=== PATIENT | male | born 1930 | race Caucasian/White ===

== ENCOUNTER 2017-09-23 13:26 | Emergency (ER) | payer MEDICARE, BC | END 2017-09-23 14:58 | disposition home or self-care (01) | LOC: ERS 13:26 | DX: S37.30XA Unspecified injury of urethra, initial encounter (principal); E11.9 Type 2 diabetes mellitus without complications; I10 Essential (primary) hypertension; Z79.84 Long term (current) use of oral hypoglycemic drugs; Z79.899 Other long term (current) drug therapy; X58.XXXA Exposure to other specified factors, initial encounter | CPT/HCPCS: 99283 ==

== ENCOUNTER 2017-09-24 08:27 | Inpatient (IN) | payer MEDICARE, BC ==
[2017-09-24 09:22] LABS: #Eosinphils 0.1 thou/uL (0.0-0.7); #Lymphocytes 1.2 thou/uL (1.20-3.40); #Monocytes 0.8 thou/uL (0.11-0.59); #Neutrophils 6.6 thou/uL (1.40-6.50); %Basophils 0.1 % (0.0-1.0); %Eosinophils 1.4 % (0.0-10.0); %Lymphocytes 14.1 % (21.0-51.0); %Monocytes 8.6 % (0.0-10.0); %Neutrophils 75.8 % (42.0-75.0); Hemoglobin 12.8 g/dL (14.0-18.0); Mean Corpuscular HGB CONC 34.6 g/dL (32.0-36.0); Mean Corpuscular Hemoglobin 31.4 pg (27.0-31.0); Mean Corpuscular Volume 90.7 fl (80.0-94.0); Mean Platelet Volume 5.7 fL (7.4-10.4); Platelet Count 315 thou/uL (130-400); RBC Distribution Width 11.9 % (11.5-14.5); Red Blood Cell (RBC) Count 4.07 mill/uL (4.70-6.10); White Blood Cell (WBC) Count 8.7 thou/uL (4.8-10.8)
[2017-09-24 09:27] LABS: Bilirubin Negative (Negative); Blood, Urine Large (Negative); Glucose, Urine (Dipstick) >=1000 mg/dL (Negative); Leukocyte Small (Negative); Nitrite Negative (Negative); Protein, Urine (Dipstick) 30 mg/dL (Neg-Trace); Urobilinogen 0.2 mg/dL (0.2-1.0)
[2017-09-24 09:28] LABS: Clarity Cloudy (Clear)
[2017-09-24 09:31] LABS: Bacteria/HPF None Seen HPF (None Seen); Hyaline Casts/LPF 0-3 HYALINE CAST LPF (0-3 Hyaline); RBC/HPF GREATER THAN 50-TNTC HPF (0-3); Squamous Epithelial 0-3 HPF (0-3)
[2017-09-24 09:44] LABS: ALT (SGPT) 15 U/L (8-55); AST (SGOT) 16 U/L (5-34); Alkaline Phosphatase 81 U/L (40-150); Anion Gap 15 mmol/L (10-20); BUN (Urea Nitrogen) 32 mg/dL (8.4-25.7); Bilirubin, Total 0.5 mg/dL (0.2-1.2); Calc. Creatinine Clearance 0 mL/min (70-130); Calcium 9.2 mg/dL (7.8-10.44); Carbon Dioxide 22 mmol/L (23-31); Chloride 90 mmol/L (98-107); Estimated GFR-MDRD 54; Globulin 3.9 g/dL (2.4-3.5); Glucose 322 mg/dL (83-110); Potassium 4.6 mmol/L (3.5-5.1); Protein, Total 7.9 g/dL (5.8-8.1); Sodium 122 mmol/L (136-145)
[2017-09-24] MEDS ORDERED: Acetaminophen 500 MG TAB ONE ×2 (09:52→09:55)
[2017-09-24] MEDS ORDERED: Fentanyl 100 MCG/2 ML VIAL ONE (10:25)
[2017-09-24] MEDS ORDERED: cefTRIAXone\\ROCEPHIN 2 GM VIAL ONE (10:25)
[2017-09-24] MEDS ORDERED: Ondansetron ODT 4 MG TAB ONE (11:15)
[2017-09-24] MEDS ORDERED: Vancomycin HCl 1 GM in Premix Bag 1 BAG IVPB SCH (11:45)
[2017-09-24 11:58] LABS: CKMB 0.5 ng/mL (0-6.6); Troponin I Less than 0.010 ng/mL (< 0.028)
--- NOTE | 2017-09-24 12:09 | RAD ---
PORTABLE CHEST: Date: 09/24/17 PROVIDED CLINICAL HISTORY: Sepsis. FINDINGS: Comparison made with the study dated 07/23/15. The cardiac silhouette appears enlarged. There is volume loss involving the right hemithorax with octavio ft of the medial contents rightward. This appears accentuated with respect to the prior study. The le ft lung appears clear. There is no evidence for pneumothorax. Pleural and/or parenchymal opacity at t he right lung base cannot be excluded. IMPRESSION: Shift of the mediastinal contents rightward and right basilar pleural and/or parenchymal opacity, whi ch may reflect lobar atelectasis. Consider correlation with chest CT. POS: [facility]
[2017-09-24] MEDS ORDERED: Acetaminophen 325 MG TAB PO PRN ×2 (12:39→12:56)
[2017-09-24] MEDS ORDERED: Ondansetron HCl/PF 4 MG/2 ML Vial IVP PRN ×2 (12:39→12:56)
[2017-09-24] MEDS ORDERED: Sodium Chloride 0.9% 1,000 ML IV SCH (12:39)
[2017-09-24] MEDS ORDERED: Ondansetron ODT 4 MG TAB SL PRN (12:39)
[2017-09-24] MEDS ORDERED: Calcium Carbonate 500 MG ChewTAB PO PRN (12:56)
[2017-09-24] MEDS ORDERED: traMADol HCl 50 MG TAB PO PRN (12:56)
[2017-09-24] MEDS ORDERED: Benzonatate 100 MG CAP PO PRN (12:56)
[2017-09-24] MEDS ORDERED: Bisacodyl 5 MG TAB PO PRN ×2 (12:56)
[2017-09-24] MEDS ORDERED: Loratadine 10 MG TAB PO PRN (12:56)
[2017-09-24] MEDS ORDERED: Milk Of Magnesia 30 ML UDCUP PO PRN (12:56)
[2017-09-24] MEDS ORDERED: Diabetic Tussin 200 MG/10 ML UDCUP PO PRN (12:56)
[2017-09-24] MEDS ORDERED: cloNIDine 0.1 MG TAB PO PRN (12:56)
[2017-09-24] MEDS ORDERED: Senokot 8.6 MG TAB PO PRN ×2 (12:56)
[2017-09-24] MEDS ORDERED: hydrALAZINE 20 MG/ML VIAL SLOW IVP PRN (12:56)
[2017-09-24] MEDS ORDERED: Nitroglycerin 0.4 MG TAB (25 Tab Bottle) SL PRN (12:56)
[2017-09-24] MEDS ORDERED: Mag-Al 1200 mg/1200 mg/30 ML UDCUP PO PRN (12:56)
[2017-09-24] MEDS ORDERED: HumaLOG 300 UNITS/3 ML VIAL SC PRN (13:01)
[2017-09-24] MEDS ORDERED: Dextrose 5% in Water 1,000 ML IV PRN (13:01)
[2017-09-24] MEDS ORDERED: Dextrose 50% Abboject 50 ML SYRINGE SLOW IVP PRN (13:01)
[2017-09-24 14:17] VITALS: BMI 23.0
[2017-09-24 14:42] LABS: Lactic Acid 3.8 mmol/L (0.5-2.2)
--- NOTE | 2017-09-24 14:49 | HP ---
DATE OF ADMISSION: 09/24/2017 PRIMARY CARE PHYSICIAN: Dr. Kwabena Rodriguez. CHIEF COMPLAINT: Blood in the urine. HISTORY OF PRESENT ILLNESS: Mr. Mendoza is a pleasant 86-year-old male with known history of indwelli ng Prado catheter due to urinary retention, diabetes, and hypertension, who presented to the emergenc y room with the above-mentioned complaint. History is mainly obtained by the patient himself and sup plemented by his daughter present in the room. Case has been discussed with admitting ER physician, Dr. Mart. Electronic medical records have been reviewed. The patient was seen in the emergency ro om yesterday also with complaints of blood in his urine. At that time, his catheter was flushed and he was sent home. Mr. Mendoza came back again today when he found more urine and his leg back today. He reports that he has this Prado catheter for about one year and follows up with the urologist at the [facility]. His Prado catheter was changed by his home health nurse only yesterday. This morning, h e noticed that the bleeding was getting worse and there was a lot of blood in the catheter today as w ell as in the back, so he came to the emergency room. In the ER, he was found to have blood in the l eg bag and this was flushed by the emergency room nurse with return of clear urine. His urine has si nce been cleared and has remained clear without any more blood. He was found to have evidence of a m ild urinary tract infection on further workup with WBCs and leukocyte esterase in the emergency room. His H&H has been stable and he does not have any leukocytosis, but he has elevated neutrophil count . He was also found to have low sodium at 122. He does report that he has been feeling poorly for t he last week or so, but denies any fever, chills, cough, or rhinorrhea. He denies any nausea, vomiti ng, diarrhea, or abdominal pain. He denies any dysuria either. In the emergency room, the patient was stable, but later after receiving Rocephin for UTI, he became hypotensive with a systolic blood pressure dropping to 79/50. This was easily corrected with fluid b olus. He did have one episode of vomiting after this, but since then his blood pressure has been cor rected and he is feeling much better and he is actually eating when I saw him and is in good spirits. He is now being admitted to the hospital with sepsis, septic shock secondary to urinary tract infec tion, hyponatremia and hematuria. The patient also did fall 2 days ago when he turned wrong. PAST MEDICAL HISTORY: Hypertension and diabetes mellitus, (02:58) chronic urinary retention sta tus post indwelling Prado catheter. PAST SURGICAL HISTORY: Prado catheter placement 1 year ago. PSYCHIATRIC HISTORY: No anxiety, no depression. SOCIAL HISTORY: He lives by himself at home with the help of family support. No history of drug, to bacco or alcohol abuse. FAMILY HISTORY: No significant family history of any premature coronary artery disease or stroke or cancer. ALLERGIES: No known medication allergies. MEDICATIONS: They further need to be confirmed, but so far according to the ER reports he is on the following, triamterene/hydrochlorothiazide 37.5/25 mg daily, glyburide 2.5 mg b.i.d., verapamil 240 m g b.i.d., metformin 1000 mg daily, enalapril 20 mg daily, metoprolol tartrate 25 mg b.i.d. REVIEW OF SYSTEMS: A 12-point review of system is done, it is negative except for those mentioned in the history and physical. Constitutional: Weight loss or gain, ability to conduct usual activities. Skin: Rash, itching. Eyes: Double vision, pain. ENT/Mouth: Nose bleeding, neck stiffness, pain, tenderness. Cardiovascular: Palpitations, dyspnea on exertion, orthopnea. Respiratory: Shortness of breath, wheezing, cough, hemoptysis, fever or night sweats. Gastrointestinal: Poor appetite, abdominal pain, heartburn, nausea, vomiting, constipation, or diarrhea. Genitourinary: Urgency, frequency, dysuria, nocturia. Musculoskeletal: Pain, swelling. Neurologic/Psychiatric: Anxiety, depression. Allergy/Immunologic: Skin rash, bleeding tendency. LABORATORY DATA: His CBC shows WBCs at 8.7, hemoglobin 12.8, platelet count of 315, 75% neutrophils. Serum chemistry shows sodium of 122, chloride 90, bicarbonate 22, BUN 32, creatinine 1.26, blood mena gar 322, lactic acid 3.7. Cardiac enzymes within normal limits. Creatinine kinase is normal. Urina lysis showed glucosuria, proteinuria, leukocyte esterase, wbc and multiple rbc's. Chest x-ray by my review has no evidence to suggest pulmonary effusion or edema. He does have right-sided atelectasis. A 12-lead EKG by my review shows normal sinus rhythm at 73 beats per minute with normal ST segment and T waves. PHYSICAL EXAMINATION: VITAL SIGNS: Upon presentation, blood pressure 158/95, pulse of 92, respirations 19, saturating 96% on room air, temperature 97.9. GENERAL: No acute distress, awake, alert, oriented x3, eating in bed, appears nontoxic. HEENT: Mucous membranes are slightly dry. No oropharyngeal exudate or erythema. Head is normocepha lic, atraumatic. Pupils equal, reactive to light and accommodation. Extraocular movement intact. NECK: Supple without any lymphadenopathy, JVD or bruit. CHEST: Clear to auscultation without any wheezing, rales or rhonchi. CARDIOVASCULAR: Rate and rhythm is regular without any murmur, rubs or gallops. ABDOMEN: Somewhat distended without no tenderness, no hepatosplenomegaly, it is soft. No guarding, rebound or rigidity. EXTREMITIES: Free of any cyanosis, clubbing, or edema. GENITOURINARY: Clean looking Prado catheter is placed with clean urine in the bag. NEUROLOGIC: Nonfocal. SKIN: Free of any rashes or bruises. I feel warm and dry to touch. PSYCHIATRIC: Normal affect. IMPRESSION AND PLAN: 1. Sepsis and septic shock. This is secondary to urinary tract infection most likely. Urine cultur e and blood cultures have been obtained. We will continue with broad spectrum IV antibiotics for now including vancomycin and Rocephin. He has also received gentamicin in the emergency room. We will continue fluid resuscitation to maintain adequate mean arterial pressure. He will be admitted to [facility] because of hypotension on presentation. Currently, he is clinically improved. He will be monitore d closely on telemetry. 2. Urinary tract infection, likely secondary to chronic indwelling Prado catheter. We will await fo r the final results of the urine culture and adjust antibiotics as needed. 3. Hyponatremia. This is likely secondary to poor p.o. intake in the last few days and dehydration due to sepsis. He will be resuscitated with IV fluids and we will recheck sodium in the morning as a gain. 4. Hematuria. This was secondary to traumatic Prado insertion yesterday. The patient has clear uri ne for now. We will continue to monitor and monitor H&H. Avoid any heparin products for now. 5. Chronic indwelling Prado catheter as above. Catheter care will be provided while he is here. He will follow up with his urologist as an outpatient after discharge. 6. Diabetes mellitus type 2. We will provide him with insulin sliding scale and resume his home med ications once confirmed. 7. Hypertension. We will hold all antihypertensives for now given the presence of low blood pressur e. Add p.r.n. antihypertensives and monitor closely for now. 8. Code status: FULL CODE. Discussed with the patient. 9. Deep venous thrombosis and gastrointestinal prophylaxes with sequential compression devices and P epcid p.o. daily. 10. Add p.r.n. medication order and supportive care. DISPOSITION: Mr. Mendoza is currently being admitted to the hospital with sepsis and septic shock sec ondary to urinary tract infection. Estimated length of stay at this time is at least 2-3 midnights. Further management will depend upon his clinical course.
[2017-09-24] MEDS: Sodium Chloride 0.9% 1,000 ML IV SCH ×2 (15:12→23:36)
[2017-09-24] MEDS ORDERED: Prevnar 13-Val Conj/PF 0.5 ML SYRINGE IM ONE (15:15)
[2017-09-24] MEDS ORDERED: Pepto Bismol Chew TAB PO PRN (15:56)
[2017-09-24] MEDS ORDERED: EUCALYPTUS PO PRN (16:15)
[2017-09-24] MEDS ORDERED: MENTHOL PO PRN (16:15)
[2017-09-24] MEDS: glyBURIDE 2.5 MG TAB PO SCH (18:42)
[2017-09-24] MEDS: Famotidine 20 MG TAB PO SCH (20:55)
[2017-09-25 04:49] LABS: #Eosinphils 0.1 thou/uL (0.0-0.7); #Lymphocytes 1.6 thou/uL (1.20-3.40); #Monocytes 1.1 thou/uL (0.11-0.59); #Neutrophils 10.5 thou/uL (1.40-6.50); %Basophils 0.2 % (0.0-1.0); %Eosinophils 0.6 % (0.0-10.0); %Lymphocytes 12.1 % (21.0-51.0); %Monocytes 8.5 % (0.0-10.0); %Neutrophils 78.5 % (42.0-75.0); Hemoglobin 11.2 g/dL (14.0-18.0); Mean Corpuscular HGB CONC 33.6 g/dL (32.0-36.0); Mean Corpuscular Hemoglobin 30.7 pg (27.0-31.0); Mean Corpuscular Volume 91.4 fl (80.0-94.0); Platelet Count 252 thou/uL (130-400); RBC Distribution Width 11.9 % (11.5-14.5); Red Blood Cell (RBC) Count 3.64 mill/uL (4.70-6.10); White Blood Cell (WBC) Count 13.3 thou/uL (4.8-10.8)
[2017-09-25 05:01] LABS: Anion Gap 13 mmol/L (10-20); BUN (Urea Nitrogen) 28 mg/dL (8.4-25.7); Calc. Creatinine Clearance 44 mL/min (70-130); Calcium 8.2 mg/dL (7.8-10.44); Carbon Dioxide 21 mmol/L (23-31); Chloride 99 mmol/L (98-107); Estimated GFR-MDRD 61; Glucose 94 mg/dL (83-110); Potassium 4.5 mmol/L (3.5-5.1); Sodium 128 mmol/L (136-145)
[2017-09-25] MEDS: Famotidine 20 MG TAB PO SCH (08:26)
[2017-09-25] MEDS: glyBURIDE 2.5 MG TAB PO SCH ×2 (08:26→21:18)
[2017-09-25] MEDS: Metoprolol Tartrate 25 MG TAB PO SCH ×2 (09:07→21:18)
[2017-09-25] MEDS: Sodium Chloride 0.9% 1,000 ML IV SCH ×3 (09:09→14:06)
[2017-09-25] MEDS: cefTRIAXone\\ROCEPHIN 2 GM in Sodium Chloride 0.9% 100 ML IVPB SCH (10:44)
[2017-09-25] MEDS: Vancomycin HCl 1 GM in Premix Bag 1 BAG IVPB SCH (12:04)
[2017-09-25] MEDS: HumaLOG 300 UNITS/3 ML VIAL SC PRN (12:04)
--- NOTE | 2017-09-25 13:50 | PDOC.PN ---
- Subjective Encounter Start Date: 09/25/17 Encounter Start Time: 13:48 Subjective: feels much better.no new complaints -: no CP/SOb.no hematuria - Objective Resuscitation Status: Resuscitation Status FULL:Full Resuscitation MAR Reviewed: Yes Vital Signs & Weight: Vital Signs (12 hours) Temp Pulse Resp BP Pulse Ox 09/25/17 11:36 98.0 F 78 16 161/82 H 95 09/25/17 09:17 97 09/25/17 08:00 98.7 F 75 20 95 09/25/17 07:39 98.7 F 75 20 132/59 L 95 09/25/17 03:53 99.4 F 70 20 125/57 L 95 Weight Weight 152 lb 1.6 oz I&O: 09/24/17 09/25/17 09/26/17 06:59 06:59 06:59 Intake Total 1200 480 Output Total 2300 Balance -1100 480 Result Diagrams: 09/25/17 03:38 09/25/17 03:38 Additional Labs: Accuchecks 09/25/17 09/25/17 09/24/17 10:55 05:44 22:25 POC Glucose 215 H 101 124 H Microbiology 09/24/17 10:40 Venous blood - Left Arm Blood Culture - Preliminary Gram Negative Yunior 09/24/17 10:34 Venous blood - Right Hand Blood Culture - Preliminary Specimen has been received and culture in progress. No Growth to date. 09/24/17 08:53 Urine barber catheter Urine Culture - Preliminary Gram Negative Yunior Laboratory Tests 09/24/17 09/25/17 09:00 03:38 Sodium 122 L 128 L labs reviewed Phys Exam - Physical Examination Constitutional: NAD HEENT: PERRLA, moist MMs, sclera anicteric, oral pharynx no lesions Neck: no nodes, no JVD, supple, full ROM Respiratory: no wheezing, no rales, no rhonchi, clear to auscultation bilateral Cardiovascular: RRR, no significant murmur, no rub Gastrointestinal: soft, non-tender, no distention, positive bowel sounds Musculoskeletal: no edema, pulses present Neurological: non-focal, normal sensation, moves all 4 limbs Psychiatric: normal affect, A&O x 3 Skin: no rash Dx/Plan (1) Sepsis Code(s): A41.9 - SEPSIS, UNSPECIFIED ORGANISM Status: Acute (2) UTI (urinary tract infection) Status: Acute (3) Gram-neg septicemia Status: Acute (4) Hyponatremia Code(s): E87.1 - HYPO-OSMOLALITY AND HYPONATREMIA Status: Acute Comment: likley due to dehydration,sepsis and diuretics.Diuretics stopped (5) Hematuria Code(s): R31.9 - HEMATURIA, UNSPECIFIED Status: Acute (6) Septic shock Code(s): A41.9 - SEPSIS, UNSPECIFIED ORGANISM; R65.21 - SEVERE SEPSIS WITH SEPTIC SHOCK Status: Resolved (7) HTN (hypertension) Code(s): I10 - ESSENTIAL (PRIMARY) HYPERTENSION Status: Acute (8) Chronic indwelling Barber catheter Code(s): Z92.89 - PERSONAL HISTORY OF OTHER MEDICAL TREATMENT Status: Acute - Plan PT/OT, out of bed/ambulate, DVT proph w/SCDs sodium improving.adequate PO intake.anastasia slow dwon the IVf -: restart Bp meds slowly as tolerated and titrate up. -: cont empiric Abx untill final Cx available. -: hemodynamically stable.monitor -: am labs * . Review of Systems - Review of Systems Constitutional: negative: fever, chills, sweats, weakness, malaise, other Respiratory: negative: Cough, Dry, Shortness of Breath, Hemoptysis, SOB with Excertion, Pleuritic Pain, Sputum, Wheezing Cardiovascular: negative: chest pain, palpitations, orthopnea, paroxysmal nocturnal dyspnea, edema, light headedness, other Gastrointestinal: negative: Nausea, Vomiting, Abdominal Pain, Diarrhea, Constipation, Melena, Hematochezia, Other Genitourinary: negative: Dysuria, Frequency, Incontinence, Hematuria, Retention , Other Musculoskeletal: negative: Neck Pain, Shoulder Pain, Arm Pain, Back Pain, Hand Pain, Leg Pain, Foot Pain, Other Neurological: negative: Weakness, Numbness, Incoordination, Change in Speech, Confusion, Seizures, Other - Medications/Allergies Allergies/Adverse Reactions: Allergies Allergy/AdvReac Type Severity Reaction Status Date / Time No Known Allergies Allergy Verified 09/24/17 14:25 Medications: Current Medications Acetaminophen (Tylenol) 650 mg PO Q4H PRN PRN Reason: Headache/Fever or Pain Al Hydroxide/Mg Hydroxide (Maalox) 30 ml PO Q6H PRN PRN Reason: Heartburn or Indigestion Benzonatate (Tessalon) 100 mg PO Q4H PRN PRN Reason: Cough Bisacodyl (Dulcolax) 10 mg PO DAILYPRN PRN PRN Reason: Constipation Bismuth Subsalicylate (Pepto Bismol) 1 tab PO ASDIR PRN PRN Reason: Diarrhea/Loose Stools Calcium Carbonate (Tums) 1,000 mg PO Q4H PRN PRN Reason: Heartburn or Indigestion Clonidine (Catapres) 0.1 mg PO Q4H PRN PRN Reason: Systolic BP > 160 Dextrose/Water (Dextrose 50%) 25 gm SLOW IVP PRN PRN PRN Reason: Hypoglycemia Famotidine (Pepcid) 20 mg PO DAILY [facility] Glucagon (Glucagon) 1 mg IM PRN PRN PRN Reason: Hypoglycemia Glyburide (Micronase) 2.5 mg PO BID [facility] Last Admin: 09/25/17 08:26 Dose: 2.5 mg Guaifenesin (Robitussin Sf) 200 mg PO Q4H PRN PRN Reason: Cough Hydralazine HCl (Apresoline) 10 mg SLOW IVP Q4H PRN PRN Reason: Systolic BP > 170 Ceftriaxone Sodium 2 gm/ (Sodium Chloride) 100 mls @ 200 mls/hr IVPB 1100 [facility] Last Admin: 09/25/17 10:44 Dose: 100 mls Sodium Chloride (Normal Saline 0.9%) 1,000 mls @ 100 mls/hr IV .Q10H [facility] Last Admin: 09/25/17 12:11 Dose: Not Given Vancomycin HCl 1 gm/ Device 200 mls @ 200 mls/hr IVPB 1200 [facility] Last Admin: 09/25/17 12:04 Dose: 200 mls Dextrose/Water (D5w) 1,000 mls @ 0 mls/hr IV .Q0M PRN; As Directed PRN Reason: Hypoglycemia Insulin Human Lispro (Humalog) 0 units SC .MODERATE SLIDING SC PRN PRN Reason: Moderate Correctional Scale Last Admin: 09/25/17 12:04 Dose: 4 unit Insulin Human Lispro (Humalog) 0 units SC .BEDTIME SLIDING SC PRN PRN Reason: Bedtime Correctional Scale Lactulose (Lactulose) 10 gm PO DAILYPRN PRN PRN Reason: Constipation Loratadine (Claritin) 10 mg PO DAILYPRN PRN PRN Reason: Sinus Symptoms Magnesium Hydroxide (Milk Of Magnesium) 30 ml PO DAILYPRN PRN PRN Reason: Constipation Metoprolol Tartrate (Lopressor) 12.5 mg PO BID [facility] Last Admin: 09/25/17 09:07 Dose: 12.5 mg Miscellaneous Medication (Pharmacy To Dose) 0 each IVPB ASDIR PRN PRN Reason: Pharmacy to Dose VANC Nitroglycerin (Nitrostat) 0.4 mg SL Q5MIN PRN PRN Reason: Chest Pain Ondansetron HCl (Zofran) 4 mg IVP Q6H PRN PRN Reason: Nausea/Vomiting Senna (Senokot) 2 tab PO HSPRN PRN PRN Reason: Constipation Tramadol HCl (Ultram) 50 mg PO Q4H PRN PRN Reason: Moderate Pain (4-6)
[2017-09-25] MEDS: Melatonin 3 MG TAB PO PRN (21:18)
[2017-09-26 04:43] LABS: Anion Gap 13 mmol/L (10-20); BUN (Urea Nitrogen) 18 mg/dL (8.4-25.7); Calc. Creatinine Clearance 51 mL/min (70-130); Calcium 8.6 mg/dL (7.8-10.44); Carbon Dioxide 23 mmol/L (23-31); Chloride 97 mmol/L (98-107); Estimated GFR-MDRD 73; Glucose 189 mg/dL (83-110); Potassium 4.2 mmol/L (3.5-5.1); Sodium 129 mmol/L (136-145)
[2017-09-26 05:43] LABS: Band 10 % (5-11); Eosinophils 2 % (0-10); Hemoglobin 11.9 g/dL (14.0-18.0); Lymphocytes 25 % (21-51); MDiff Complete? YES; Mean Corpuscular HGB CONC 34.6 g/dL (32.0-36.0); Mean Corpuscular Hemoglobin 31.7 pg (27.0-31.0); Mean Corpuscular Volume 91.6 fl (80.0-94.0); Mean Platelet Volume 6.1 fL (7.4-10.4); Monocytes 6 % (0-10); Neutrophil 57 % (42-75); PLT Morphology Comment Appears Adequate; Platelet Count 248 thou/uL (130-400); RBC Distribution Width 11.9 % (11.5-14.5); Red Blood Cell (RBC) Count 3.77 mill/uL (4.70-6.10); White Blood Cell (WBC) Count 11.6 thou/uL (4.8-10.8)
[2017-09-26] MEDS: Sodium Chloride 0.9% 1,000 ML IV SCH (06:30)
[2017-09-26] MEDS ORDERED: Metoprolol Tartrate 25 MG TAB PO SCH (07:11)
[2017-09-26] MEDS: Metoprolol Tartrate 25 MG TAB PO SCH ×2 (08:09→20:32)
[2017-09-26] MEDS: Famotidine 20 MG TAB PO SCH (08:09)
[2017-09-26] MEDS: glyBURIDE 2.5 MG TAB PO SCH ×2 (08:09→16:21)
[2017-09-26] MEDS: Verapamil SR 120 MG TAB PO SCH ×2 (08:09→20:32)
[2017-09-26] MEDS: HumaLOG 300 UNITS/3 ML VIAL SC PRN (10:46)
[2017-09-26] MEDS: cefTRIAXone\\ROCEPHIN 2 GM in Sodium Chloride 0.9% 100 ML IVPB SCH (10:46)
[2017-09-26 11:58] LABS: Vancomycin, Trough 6.3 ug/mL
--- NOTE | 2017-09-26 12:00 | RAD ---
CHEST ONE VIEW: History: Dyspnea. Hypoxia. Comparison: 09-24-17 FINDINGS: Cardiac silhouette is magnified and enlarged. Pulmonary vasculature remains engorged. Slight rightwar d shift of the mediastinum and patchy bibasilar infiltrates are unchanged. No evidence of pneumothora x. IMPRESSION: Pulmonary vascular congestion and other findings are stable. POS: [facility]
[2017-09-26] MEDS: Vancomycin HCl 1 GM in Premix Bag 1 BAG IVPB SCH ×2 (12:35→13:23)
--- NOTE | 2017-09-26 14:14 | PDOC.PN ---
- Subjective Encounter Start Date: 09/26/17 Encounter Start Time: 14:13 Subjective: feels better.no fever/chills.chr dry cough -: reports some SOB last night ,now resolved - Objective Resuscitation Status: Resuscitation Status FULL:Full Resuscitation MAR Reviewed: Yes Vital Signs & Weight: Vital Signs (12 hours) Temp Pulse Pulse Pulse Resp BP BP 09/26/17 12:45 97.8 F 81 20 09/26/17 12:24 97.7 F 79 36 H 09/26/17 09:45 76 83 141/79 H 177/93 H 09/26/17 08:00 98.3 F 83 29 H 09/26/17 07:38 98.3 F 83 29 H 09/26/17 04:03 98.7 F 78 29 H BP BP Pulse Ox 09/26/17 12:45 148/72 H 95 09/26/17 12:24 147/70 H 96 09/26/17 09:45 09/26/17 08:00 97 09/26/17 07:38 147/73 H 97 09/26/17 04:03 157/89 H 98 Weight Weight 148 lb 6.4 oz I&O: 09/25/17 09/26/17 09/27/17 06:59 06:59 06:59 Intake Total 1200 2868 1262 Output Total 2300 4575 950 Balance -1100 -1707 312 Result Diagrams: 09/26/17 03:43 09/26/17 03:43 Additional Labs: Accuchecks 09/26/17 09/26/17 09/25/17 10:30 05:53 19:55 POC Glucose 265 H 188 H 236 H 09/25/17 16:33 POC Glucose 125 H Laboratory Tests 09/24/17 09/24/17 09/25/17 09:00 09:00 03:38 WBC 8.7 Sodium 122 L 128 L 09/25/17 09/26/17 09/26/17 03:38 03:43 03:43 WBC 13.3 H 11.6 H Sodium 129 L Microbiology 09/24/17 08:53 Urine barber catheter Urine Culture - Final Citrobacter koseri 09/24/17 10:40 Venous blood - Left Arm Blood Culture - Preliminary Gram Negative Yunior 09/24/17 10:34 Venous blood - Right Hand Blood Culture - Preliminary NO GROWTH AT 48 HOURS LABS REVIEWED Radiology Reviewed by me: Yes (CXR-Pulm vasc congestion) Phys Exam - Physical Examination Constitutional: NAD sitiing up in chair HEENT: PERRLA, moist MMs, sclera anicteric, oral pharynx no lesions Neck: no nodes, no JVD, supple, full ROM Respiratory: no wheezing, no rales, no rhonchi, clear to auscultation bilateral Cardiovascular: RRR, no significant murmur Gastrointestinal: soft, non-tender, no distention, positive bowel sounds Musculoskeletal: no edema, pulses present Neurological: non-focal, normal sensation, moves all 4 limbs Psychiatric: normal affect, A&O x 3 Skin: no rash Dx/Plan (1) Sepsis Code(s): A41.9 - SEPSIS, UNSPECIFIED ORGANISM Status: Acute (2) UTI (urinary tract infection) Status: Acute (3) Gram-neg septicemia Status: Acute (4) Hyponatremia Code(s): E87.1 - HYPO-OSMOLALITY AND HYPONATREMIA Status: Acute Comment: likley due to dehydration,sepsis and diuretics.Diuretics stopped (5) Hematuria Code(s): R31.9 - HEMATURIA, UNSPECIFIED Status: Resolved Comment: due to traumatic barber (6) Septic shock Code(s): A41.9 - SEPSIS, UNSPECIFIED ORGANISM; R65.21 - SEVERE SEPSIS WITH SEPTIC SHOCK Status: Resolved (7) HTN (hypertension) Code(s): I10 - ESSENTIAL (PRIMARY) HYPERTENSION Status: Acute (8) Chronic indwelling Barber catheter Code(s): Z92.89 - PERSONAL HISTORY OF OTHER MEDICAL TREATMENT Status: Acute - Plan plan discussed w/ family, barber catheter, continue antibiotics, PT/OT, incentive spirometry, out of bed/ambulate, DVT proph w/SCDs Clinically better.cont empiric Abx untill final Cx results available -: CXr shows some pulm vasc congestion.will give 1 dose lasix.no hypoxia.On RA -: BP on higher side.Increase metoprolol to home dose.cont verapamil & 1/2 dos -: re introduce Enalapril if Bp still high.stop diuretics permanently -: OK to transfer to [facility].cont home meds,supportive care * .declines rehab.will arrange HH * AM labs Review of Systems - Review of Systems Constitutional: weakness. negative: fever, chills, sweats, malaise, other Respiratory: negative: Cough, Dry, Shortness of Breath, Hemoptysis, SOB with Excertion, Pleuritic Pain, Sputum, Wheezing Cardiovascular: negative: chest pain, palpitations, orthopnea, paroxysmal nocturnal dyspnea, edema, light headedness, other Gastrointestinal: negative: Nausea, Vomiting, Abdominal Pain, Diarrhea, Constipation, Melena, Hematochezia, Other Genitourinary: negative: Dysuria, Frequency, Incontinence, Hematuria, Retention , Other Musculoskeletal: negative: Neck Pain, Shoulder Pain, Arm Pain, Back Pain, Hand Pain, Leg Pain, Foot Pain, Other Skin: negative: Rash, Lesions, Ren, Bruising, Other - Medications/Allergies Allergies/Adverse Reactions: Allergies Allergy/AdvReac Type Severity Reaction Status Date / Time No Known Allergies Allergy Verified 09/24/17 14:25 Medications: Current Medications Acetaminophen (Tylenol) 650 mg PO Q4H PRN PRN Reason: Headache/Fever or Pain Al Hydroxide/Mg Hydroxide (Maalox) 30 ml PO Q6H PRN PRN Reason: Heartburn or Indigestion Benzonatate (Tessalon) 100 mg PO Q4H PRN PRN Reason: Cough Bisacodyl (Dulcolax) 10 mg PO DAILYPRN PRN PRN Reason: Constipation Bismuth Subsalicylate (Pepto Bismol) 1 tab PO ASDIR PRN PRN Reason: Diarrhea/Loose Stools Calcium Carbonate (Tums) 1,000 mg PO Q4H PRN PRN Reason: Heartburn or Indigestion Clonidine (Catapres) 0.1 mg PO Q4H PRN PRN Reason: Systolic BP > 160 Dextrose/Water (Dextrose 50%) 25 gm SLOW IVP PRN PRN PRN Reason: Hypoglycemia Famotidine (Pepcid) 20 mg PO DAILY [facility] Last Admin: 09/26/17 08:09 Dose: 20 mg Furosemide (Lasix) 20 mg SLOW IVP ONE [facility] Glucagon (Glucagon) 1 mg IM PRN PRN PRN Reason: Hypoglycemia Glyburide (Micronase) 2.5 mg PO BID[facility] Last Admin: 09/26/17 08:09 Dose: 2.5 mg Guaifenesin (Robitussin Sf) 200 mg PO Q4H PRN PRN Reason: Cough Hydralazine HCl (Apresoline) 10 mg SLOW IVP Q4H PRN PRN Reason: Systolic BP > 170 Ceftriaxone Sodium 2 gm/ (Sodium Chloride) 100 mls @ 200 mls/hr IVPB 1100 [facility] Last Admin: 09/26/17 10:46 Dose: 100 mls Dextrose/Water (D5w) 1,000 mls @ 0 mls/hr IV .Q0M PRN; As Directed PRN Reason: Hypoglycemia Sodium Chloride (Normal Saline 0.9%) 1,000 mls @ 75 mls/hr IV .[id number] [facility] Last Admin: 09/26/17 06:30 Dose: 1,000 mls Vancomycin HCl 1 gm/ Device 200 mls @ 200 mls/hr IVPB 0100,1300 [facility] Last Admin: 09/26/17 13:23 Dose: 200 mls Insulin Human Lispro (Humalog) 0 units SC .MODERATE SLIDING SC PRN PRN Reason: Moderate Correctional Scale Last Admin: 09/26/17 10:46 Dose: 6 unit Insulin Human Lispro (Humalog) 0 units SC .BEDTIME SLIDING SC PRN PRN Reason: Bedtime Correctional Scale Lactulose (Lactulose) 10 gm PO DAILYPRN PRN PRN Reason: Constipation Loratadine (Claritin) 10 mg PO DAILYPRN PRN PRN Reason: Sinus Symptoms Magnesium Hydroxide (Milk Of Magnesium) 30 ml PO DAILYPRN PRN PRN Reason: Constipation Melatonin (Melatonin) 3 mg PO HS PRN PRN Reason: Insomnia Last Admin: 09/25/17 21:18 Dose: 3 mg Metoprolol Tartrate (Lopressor) 25 mg PO BID [facility] Last Admin: 09/26/17 08:09 Dose: 25 mg Miscellaneous Medication (Pharmacy To Dose) 0 each IVPB ASDIR PRN PRN Reason: Pharmacy to Dose [facility] Nitroglycerin (Nitrostat) 0.4 mg SL Q5MIN PRN PRN Reason: Chest Pain Ondansetron HCl (Zofran) 4 mg IVP Q6H PRN PRN Reason: Nausea/Vomiting Senna (Senokot) 2 tab PO HSPRN PRN PRN Reason: Constipation Tramadol HCl (Ultram) 50 mg PO Q4H PRN PRN Reason: Moderate Pain (4-6) Verapamil HCl (Calan Sr) 120 mg PO BID [facility] Last Admin: 09/26/17 08:09 Dose: 120 mg
[2017-09-26] MEDS ORDERED: Furosemide 20 MG/2 ML VIAL SLOW IVP SCH (14:15)
[2017-09-26] MEDS: Melatonin 3 MG TAB PO PRN (20:32)
[2017-09-27] MEDS: Vancomycin HCl 1 GM in Premix Bag 1 BAG IVPB SCH (01:59)
[2017-09-27 05:48] LABS: Anion Gap 15 mmol/L (10-20); BUN (Urea Nitrogen) 21 mg/dL (8.4-25.7); Calc. Creatinine Clearance 42 mL/min (70-130); Calcium 8.7 mg/dL (7.8-10.44); Carbon Dioxide 24 mmol/L (23-31); Chloride 94 mmol/L (98-107); Estimated GFR-MDRD 60; Glucose 207 mg/dL (83-110); Potassium 3.9 mmol/L (3.5-5.1); Sodium 129 mmol/L (136-145)
[2017-09-27 06:15] LABS: Band 21 % (5-11); Eosinophils 1 % (0-10); Hemoglobin 11.8 g/dL (14.0-18.0); Lymphocytes 27 % (21-51); MDiff Complete? YES; Mean Corpuscular HGB CONC 34.7 g/dL (32.0-36.0); Mean Corpuscular Hemoglobin 31.5 pg (27.0-31.0); Mean Corpuscular Volume 90.8 fl (80.0-94.0); Monocytes 13 % (0-10); Neutrophil 37 % (42-75); PLT Morphology Comment Appears Adequate; Platelet Count 257 thou/uL (130-400); RBC Distribution Width 11.8 % (11.5-14.5); Red Blood Cell (RBC) Count 3.76 mill/uL (4.70-6.10); White Blood Cell (WBC) Count 9.7 thou/uL (4.8-10.8)
[2017-09-27] MEDS: Metoprolol Tartrate 25 MG TAB PO SCH ×2 (08:58→21:28)
[2017-09-27] MEDS: glyBURIDE 2.5 MG TAB PO SCH ×2 (08:58→19:05)
[2017-09-27] MEDS: Famotidine 20 MG TAB PO SCH (08:59)
[2017-09-27] MEDS ORDERED: Non-Formulary Item 1 EACH (Enalapril Maleate [Enalapril Maleate] 20 MG) PO SCH (09:00)
[2017-09-27] MEDS: HumaLOG 300 UNITS/3 ML VIAL SC PRN ×2 (09:14→12:29)
[2017-09-27] MEDS: Verapamil SR 120 MG TAB PO SCH (10:17)
--- NOTE | 2017-09-27 12:01 | PDOC.PN ---
- Subjective Encounter Start Date: 09/27/17 Encounter Start Time: 12:10 Subjective: Patient without complaint this AM. No pain. No further hematuria. No fever. - Objective Resuscitation Status: Resuscitation Status FULL:Full Resuscitation MAR Reviewed: Yes Vital Signs & Weight: Vital Signs (12 hours) Temp Pulse Resp BP BP Pulse Ox 09/27/17 08:59 145/80 H 09/27/17 08:00 98.7 F 83 21 H 145/80 H 91 L 09/27/17 04:00 97.6 F 64 18 168/79 H 93 L Weight Weight 149 lb 2 oz I&O: 09/26/17 09/27/17 09/28/17 06:59 06:59 06:59 Intake Total 2866 1742 Output Total 2527 1379 Balance -3713 -3219 Result Diagrams: 09/27/17 04:35 09/27/17 04:35 Additional Labs: Accuchecks 09/27/17 09/27/17 09/26/17 10:40 06:35 20:38 POC Glucose 259 H 219 H 305 H 09/26/17 16:50 POC Glucose 206 H Phys Exam - Physical Examination Constitutional: NAD HEENT: moist MMs Respiratory: no wheezing, no rales, no rhonchi Cardiovascular: RRR, no significant murmur Gastrointestinal: soft, positive bowel sounds Neurological: non-focal, moves all 4 limbs Psychiatric: normal affect Dx/Plan (1) Sepsis Code(s): A41.9 - SEPSIS, UNSPECIFIED ORGANISM Status: Resolved Qualifiers: Sepsis type: sepsis due to unspecified organism Qualified Code(s): A41.9 - Sepsis, unspecified organism Comment: Citrobacter growing in blood and urine, sensitive to Rocephin, d/c Vanc. (2) UTI (urinary tract infection) Status: Acute (3) Chronic indwelling Prado catheter Code(s): Z92.89 - PERSONAL HISTORY OF OTHER MEDICAL TREATMENT Status: Chronic (4) Bacteremia Code(s): R78.81 - BACTEREMIA Status: Acute Comment: Citrobacter (5) Septic shock Code(s): A41.9 - SEPSIS, UNSPECIFIED ORGANISM; R65.21 - SEVERE SEPSIS WITH SEPTIC SHOCK Status: Resolved (6) HTN (hypertension) Code(s): I10 - ESSENTIAL (PRIMARY) HYPERTENSION Status: Chronic - Plan cont current plan of care, continue antibiotics, PT/OT consider shift to oral abx tomorrow -: CXR with mediastinal shift to right, chronic on previous CXR from years -: ago * . - Discharge Day Encounter end time: 12:25
[2017-09-27] MEDS ORDERED: Verapamil SR 120 MG TAB PO SCH (12:08)
[2017-09-27] MEDS ORDERED: Furosemide 20 MG TAB PO SCH (12:15)
[2017-09-27] MEDS: cefTRIAXone\\ROCEPHIN 2 GM in Sodium Chloride 0.9% 100 ML IVPB SCH (12:23)
[2017-09-28] MEDS: HumaLOG 300 UNITS/3 ML VIAL SC PRN (06:39)
[2017-09-28] MEDS ORDERED: Furosemide 20 MG TAB PO SCH (09:00)
--- NOTE | 2017-09-28 09:34 | PDOC.PN ---
- Subjective Encounter Start Date: 09/28/17 Encounter Start Time: 11:20 Subjective: Patient doing well. No N/V. No Fever. Eating well. Ambulating well -: with PT. Daughter will get off work in the afternoon and can take him -: home then. - Objective Resuscitation Status: Resuscitation Status FULL:Full Resuscitation MAR Reviewed: Yes Vital Signs & Weight: Vital Signs (12 hours) Temp Pulse Resp BP BP Pulse Ox 09/28/17 08:00 98.0 F 82 22 H 116/63 94 L 09/28/17 04:59 93 L 09/28/17 04:00 98.7 F 63 18 122/58 L 93 L 09/28/17 01:57 52 L 09/28/17 00:00 97.6 F 50 L 16 114/51 L 94 L Weight Weight 146 lb 6.191 oz I&O: 09/27/17 09/28/17 09/29/17 06:59 06:59 06:59 Intake Total 1742 410 Output Total 3475 1100 Balance -1733 -690 Result Diagrams: 09/27/17 04:35 09/27/17 04:35 Additional Labs: Accuchecks 09/28/17 09/27/17 09/27/17 04:30 20:57 16:33 POC Glucose 203 H 281 H 116 H 09/27/17 10:40 POC Glucose 259 H Phys Exam - Physical Examination Constitutional: NAD HEENT: moist MMs Respiratory: no wheezing, no rales, no rhonchi Cardiovascular: RRR, no significant murmur Gastrointestinal: soft, non-tender, positive bowel sounds Prado in place with clear urine Neurological: non-focal, moves all 4 limbs Psychiatric: normal affect, A&O x 3 Dx/Plan (1) Sepsis Code(s): A41.9 - SEPSIS, UNSPECIFIED ORGANISM Status: Resolved Qualifiers: Sepsis type: sepsis due to unspecified organism Qualified Code(s): A41.9 - Sepsis, unspecified organism Comment: Citrobacter growing in blood and urine, sensitive to Rocephin, d/c Vanc , change to Omnicef today (2) UTI (urinary tract infection) Status: Acute (3) Chronic indwelling Prado catheter Code(s): Z92.89 - PERSONAL HISTORY OF OTHER MEDICAL TREATMENT Status: Chronic (4) Bacteremia Code(s): R78.81 - BACTEREMIA Status: Acute Comment: Citrobacter (5) Septic shock Code(s): A41.9 - SEPSIS, UNSPECIFIED ORGANISM; R65.21 - SEVERE SEPSIS WITH SEPTIC SHOCK Status: Resolved (6) HTN (hypertension) Code(s): I10 - ESSENTIAL (PRIMARY) HYPERTENSION Status: Chronic (7) Diabetes mellitus type 2 in nonobese Code(s): E11.9 - TYPE 2 DIABETES MELLITUS WITHOUT COMPLICATIONS Status: Chronic Comment: resume home metformin - Plan cont current plan of care, continue antibiotics, PT/OT Will change to oral abx and d/c home today * . - Discharge Day Encounter end time: 11:40
[2017-09-28] MEDS ORDERED: Cefdinir 300 MG CAP PO SCH ×2 (09:45→21:00)
[2017-09-28] MEDS: glyBURIDE 2.5 MG TAB PO SCH (09:46)
[2017-09-28] MEDS: Famotidine 20 MG TAB PO SCH (09:49)
[2017-09-28] MEDS: Metoprolol Tartrate 25 MG TAB PO SCH (09:52)
[2017-09-28 11:32] VITALS: TEMP 97.7
[2017-09-28 15:01] VITALS: BP 146/81
--- NOTE | 2017-09-28 20:29 | DIS ---
PRIMARY CARE PHYSICIAN: Kwabena Rodriguez. REASON FOR ADMISSION: Blood, urine, and urinary tract infection. DISCHARGE DIAGNOSES: 1. Sepsis, resolved. 2. Urinary tract infection. 3. Bacteremia with Citrobacter. 4. Chronic indwelling Prado catheter secondary to urinary retention. 5. Septic shock, resolved. 6. Hypertension, chronic. 7. Diabetes mellitus type 2. PROCEDURES: None. CONSULTATIONS: None. HISTORY OF PRESENT ILLNESS: This is an 86-year-old white male with a history of urinary retention an d indwelling Prado as well as diabetes and hypertension. He presented to the ER with blood in his ur ine. The patient was found to be septic with some hyponatremia and then a drop in his blood pressure in the emergency room, he had to be treated with fluids and IV antibiotics and was admitted to the [facility]. The patient improved on antibiotics. Both his urine and one out of two blood cultures grew back Citrobacter koseri pansensitive including Rocephin, ciprofloxacin, nitrofurantoin and Bactrim. Patient was treated with Rocephin in the hospital. He had a resolution of the hyponatremia. He did develop a leukocytosis that then resolved. On the day of discharge, the patient was doing well, was ambulating well with physical therapy and switched over to Omnicef orally and is stable for discharg e home. DISCHARGE MANAGEMENT: Discharged home with home health. ACTIVITY: As tolerated. DIET: Diabetic diet. Home health for physical and occupational therapy. Continue with a Prado and leg bag. DISCHARGE MEDICATIONS: 1. Omnicef 300 mg twice a day 20 caps for a total of 14 days of antibiotics. 2. Pepto-Bismol as needed. 3. Enalapril 20 mg daily. 4. Glyburide 2.5 mg twice a day. 5. Verapamil 240 mg sustained release twice a day. 6. Metformin extended release 1000 mg daily. 7. Metoprolol tartrate 25 mg twice a day. 8. Triamterene/hydrochlorothiazide 37.5/25 mg 1 cap daily. The patient is to follow up with his primary care physician, Dr. Rodriguez in 7 days.
== END 2017-09-28 15:53 | disposition home health service (06) | DRG 698 ==
LOC: ERS 08:27 → IMCU/EMU 12:29 → 2NO 09-26 12:45 → T4-A 09-27 15:34
PROVIDERS: ADMIT Internal Medicine; ATTEND Internal Medicine
DX: T83.511A Infection and inflammatory reaction due to indwelling urethral catheter, initial encounter (principal); A41.59 Other Gram-negative sepsis; R65.21 Severe sepsis with septic shock; E87.1 Hypo-osmolality and hyponatremia; E11.9 Type 2 diabetes mellitus without complications; I10 Essential (primary) hypertension; Y84.6 Urinary catheterization as the cause of abnormal reaction of the patient, or of later complication, without mention of misadventure at the time of the procedure
CPT/HCPCS: 36415; 36416; 71045; 80048; 80053; 80202; 81003; 81015; 82553; 83605; 84484; 85025; 87040; 87077; 87086; 87149; 87186; 90471; 90670; 93005; 96361; 96365; 96375; 99283; A4216; G0009; G8978-GP-CJ; G8979-GP-CJ; G8980-GP-CJ; G8987-GO-CJ; G8988-GO-CH; J0696; J1940; J3010; J3370; J7050; Q0162

== ENCOUNTER 2017-12-07 15:27 | Observation (INO) | payer MEDICARE, BC ==
[~2017-12-07 15:27] MED LIST: ISOVUE-370 76%-LOCM 1 ML ONE
[2017-12-07 16:02] LABS: #Monocytes 0.8 thou/uL (0.11-0.59); #Neutrophils 8.6 thou/uL (1.40-6.50); %Basophils 0.2 % (0.0-1.0); %Eosinophils 0.2 % (0.0-10.0); %Lymphocytes 9.1 % (21.0-51.0); %Monocytes 7.8 % (0.0-10.0); %Neutrophils 82.8 % (42.0-75.0); Hemoglobin 12.9 g/dL (14.0-18.0); Mean Corpuscular HGB CONC 34.3 g/dL (32.0-36.0); Mean Corpuscular Hemoglobin 30.4 pg (27.0-31.0); Mean Corpuscular Volume 88.7 fL (78.0-98.0); Mean Platelet Volume 5.4 fL (7.4-10.4); Platelet Count 408 thou/uL (130-400); RBC Distribution Width 12.2 % (11.5-14.5); Red Blood Cell (RBC) Count 4.23 mill/uL (4.70-6.10); White Blood Cell (WBC) Count 10.4 thou/uL (4.8-10.8)
[2017-12-07 16:23] LABS: ALT (SGPT) 10 U/L (8-55); AST (SGOT) 12 U/L (5-34); Albumin 4.1 g/dL (3.4-4.8); Alkaline Phosphatase 75 U/L (40-150); Anion Gap 17 mmol/L (10-20); BUN (Urea Nitrogen) 42 mg/dL (8.4-25.7); Bilirubin, Total 0.4 mg/dL (0.2-1.2); Calc. Creatinine Clearance 0 mL/min (70-130); Calcium 9.3 mg/dL (7.8-10.44); Carbon Dioxide 20 mmol/L (23-31); Chloride 89 mmol/L (98-107); Estimated GFR-MDRD 39; Globulin 4.3 g/dL (2.4-3.5); Glucose 434 mg/dL (83-110); Potassium 5.2 mmol/L (3.5-5.1); Protein, Total 8.4 g/dL (5.8-8.1); Sodium 121 mmol/L (136-145)
[2017-12-07] MEDS ORDERED: Ondansetron HCl/PF 4 MG/2 ML Vial ONE (17:05)
[2017-12-07 17:41] LABS: Bilirubin Negative (Negative); Blood, Urine Large (Negative); Clarity TURBID (Clear); Glucose, Urine (Dipstick) 500 mg/dL (Negative); Leukocyte Large (Negative); Nitrite Negative (Negative); Protein, Urine (Dipstick) 100 mg/dL (Neg-Trace); Specific Gravity, Urine 1.012 (1.002-1.036); Urobilinogen 0.2 mg/dL (0.2-1.0)
[2017-12-07 17:47] LABS: Squamous Epithelial 0-3 HPF (0-3)
[2017-12-07 17:51] LABS: Pathc Cast-AUWi Flag 23.24 (0-2.49); Yeast-AUWi Flag 309.8 (0-25.0)
[2017-12-07 17:59] LABS: Bacteria/HPF 2+ HPF (None Seen); Hyaline Casts/LPF NONE SEEN LPF (0-3 Hyaline); RBC/HPF GREATER THAN 50-TNTC HPF (0-3); Yeast-All Forms None Seen HPF (None Seen)
[2017-12-07 18:00] LABS: Manual Microscopic Reviewed? No Path Casts Seen
[2017-12-07] MEDS ORDERED: cefTRIAXone\\ROCEPHIN 1 GM VIAL ONE (18:28)
--- NOTE | 2017-12-07 18:28 | CT ---
CT ABDOMEN AND PELVIS WITH IV CONTRAST 12/07/17 HISTORY: Abdominal pain. FINDINGS: Mild atelectasis at the lung bases. Calcified granulomata are consistent with healed granulomatous di sease. Small cysts associated with each kidney. The urinary bladder is decompressed by a Prado cathet er. Calcification throughout the arterial structures. Hiatal hernia with gastroesophageal reflux. Pro minent degenerative changes lumbar spine. Small amount of free fluid within the dependent portion of the abdomen and extending into the right inguinal canal. Lack of contrast limits evaluation of the bowel. No evidence of obstruction or inflammation. IMPRESSION: 1. No evidence of bowel obstruction or inflammation. 2. Hiatal hernia with gastroesophageal reflux. 3. Right inguinal hernia. 4. Atherosclerosis. 5. Minimal ascites. POS: ROGELIO
[2017-12-07] MEDS ORDERED: Acetaminophen 325 MG TAB PO PRN (19:56)
[2017-12-07] MEDS ORDERED: HumaLOG 300 UNITS/3 ML VIAL SC PRN (19:59)
[2017-12-07] MEDS ORDERED: Dextrose 50% Abboject 50 ML SYRINGE SLOW IVP PRN (19:59)
[2017-12-07] MEDS ORDERED: Dextrose 5% in Water 1,000 ML IV PRN (19:59)
[2017-12-07 20:14] VITALS: BMI 21.4
[2017-12-07] MEDS: Metoprolol Tartrate 25 MG TAB PO SCH (21:11)
[2017-12-07] MEDS: Sodium Chloride 0.9% 1,000 ML IV SCH (23:10)
[2017-12-07] MEDS ORDERED: Ondansetron HCl/PF 4 MG/2 ML Vial IVP PRN (23:15)
--- NOTE | 2017-12-08 00:36 | HP ---
DATE OF ADMISSION: 12/07/2017 PRIMARY CARE PHYSICIAN: Dr. Kwabena Rodriguez. CODE STATUS: FULL CODE. TIME OF EVALUATION: 7:25 p.m. CHIEF COMPLAINT: Urinary retention. HISTORY OF PRESENT ILLNESS: This is an 86-year-old male patient with past medical history of diabete s, hypertension, came to the hospital after having urinary retention, the patient also reported havin g some associated nausea, vomiting, and diarrhea, but also having the fact that he has been taking [place] of Magnesia. As noted, the patient has a Prado catheter that is being placed for 1 year now, he d oes not remember exactly what diagnosis he was told at that time; however, the patient also was havin g lower abdominal pain, the Prado was clean and has been reported that the patient was found to have 2500 mL of urine that was drained from patient's bladder. Patient reported having severe associated pain in the lower abdomen, that improved after bladder was emptied. No clear triggers, no alleviatin g factors. REVIEW OF SYSTEMS: Constitutional: No fever, no chills. Generalized weakness. Respiratory: No co ugh, sputum production, or shortness of breath. Cardiovascular: No chest pain, palpitation, shortne ss of breath. Gastrointestinal: Patient has nausea, vomiting, diarrhea, lower abdominal pain. CHANGE MANAGEMENT: No dizziness, headache, or being lightheaded. Genitourinary: Patient has lower abdominal pain toyin t improved with drainage of the bladder. Extremities: No leg swelling. PAST MEDICAL HISTORY: Reported in the HPI. PAST SURGICAL HISTORY: None reported. FAMILY HISTORY: Mother had cancer. Father has COPD. PSYCHIATRIC HISTORY: No previous psychiatric history. SOCIAL HISTORY: No alcohol, no drugs. No smoking history. DRUG ALLERGIES: Patient has no known drug allergies. REPORTED MEDICATIONS: Triamterene and hydrochlorothiazide, glyburide, verapamil, metformin, enalapri l maleate, metoprolol. PHYSICAL EXAMINATION: VITAL SIGNS: On presentation 130/84 with heart rate 94, respiratory rate was 16, temperature 97.6, p ain 10/10. GENERAL APPEARANCE: Patient is alert, oriented, not in any acute distress. HEENT: Eyes, normal conjunctivae. Moist oral mucosa. Anicteric. NECK: No JVD. RESPIRATORY: Bilateral air entry. No rales, no wheezing. Symmetric expansion. CARDIOVASCULAR: Normal rate, regular rhythm. No murmurs, no gallop. No edema. ABDOMEN: Soft, normal bowel sounds. Lower abdominal tenderness has improved. MUSCULOSKELETAL: Baseline range of motion and strength. No tenderness. SKIN: Warm and intact. No pallor, no rash. No redness. Peripheral pulses are present. Capillary refill seems to be intact. NEUROLOGIC: Baseline sensory. No evidence of any new focal weakness, baseline speech. Cranial nerv es seems to be intact. PSYCHIATRIC: Patient is in a good mood. No anxiety, oriented, optimal judgment. GENITOURINARY: Patient has a Prado in place with significant sediments draining from the urine. RADIOLOGY: Abdomen and pelvis CT scan with contrast was negative. LABORATORY FINDINGS: Labs were reviewed. The patient had white count 10.4, hemoglobin 12.9, platele t count 408. Sodium 121, potassium 5.2, chloride 89, carbon dioxide 20, anion gap 17, BUN 42 with cr eatinine 1.67. There is a significant increase when compared with previous creatinine that was 1.1. The GFR 39. Glucose 434 came down to 396, calcium 9.3, serum total protein 8.4, . The urine w as positive with greater than 50 white blood cells and also some urine noticed in the catheter. ASSESSMENT AND PLAN: The patient will be placed in the hospital with following medical problems: 1. Acute urinary retention, unclear etiology, as reported patient had 2500 mL of urine drained from the bladder, the urine has sediments. UA is positive, will be secondary to urinary tract infection. Patient has been restarting antibiotics, we will follow cultures, we will adjust treatment as needed . 2. Urinary tract infection. UA is positive, significant amount of white cells in urine, treatment a s above. 3. Acute kidney injury, there is a significant increase in creatinine of more than 0.3 when compared with the previous creatinine level, likely secondary to obstruction, we will hydrate, we will monito r kidney function, we will adjust treatment as needed. 4. Uncontrolled diabetes. Patient has a glucose 434 on presentation, we will place the patient on s liding scale, we will reconcile home medications for optimal control. 5. Controlled hypertension, reconcile home medications, monitor, adjust treatment as needed. 6. Deep venous thrombosis prophylaxis. 7. Mild hyperkalemia, potassium 5.2, we will monitor, no need for any acute intervention at this poi nt. 8. Hyponatremia with sodium 121, is lower when compared with previous sodium, most likely etiology f or this hyponatremia is possible secondary to hydrochlorothiazide, we will hold for now, we will ann-marie tor sodium level, electrolytes. We will adjust treatment as needed.
[2017-12-08 05:15] LABS: Anion Gap 13 mmol/L (10-20); BUN (Urea Nitrogen) 41 mg/dL (8.4-25.7); Calc. Creatinine Clearance 33 mL/min (70-130); Calcium 8.6 mg/dL (7.8-10.44); Carbon Dioxide 25 mmol/L (23-31); Chloride 96 mmol/L (98-107); Estimated GFR-MDRD 47; Glucose 164 mg/dL (83-110); Potassium 4.8 mmol/L (3.5-5.1); Sodium 129 mmol/L (136-145)
[2017-12-08 06:13] LABS: Band 19 % (5-11); Lymphocytes 16 % (21-51); MDiff Complete? YES; Mean Corpuscular HGB CONC 34.8 g/dL (32.0-36.0); Mean Corpuscular Hemoglobin 31.1 pg (27.0-31.0); Mean Corpuscular Volume 89.4 fL (78.0-98.0); Mean Platelet Volume 5.4 fL (7.4-10.4); Monocytes 17 % (0-10); Neutrophil 48 % (42-75); Platelet Count 334 thou/uL (130-400); RBC Distribution Width 12.2 % (11.5-14.5); Red Blood Cell (RBC) Count 3.52 mill/uL (4.70-6.10); White Blood Cell (WBC) Count 7.2 thou/uL (4.8-10.8)
[2017-12-08] MEDS: Sodium Chloride 0.9% 1,000 ML IV SCH ×2 (06:23→20:37)
[2017-12-08] MEDS: Enoxaparin Sodium 30 MG/0.3 ML SYRINGE SC SCH (08:47)
[2017-12-08] MEDS: Metoprolol Tartrate 25 MG TAB PO SCH ×2 (08:47→20:37)
[2017-12-08] MEDS ORDERED: cefTRIAXone\\ROCEPHIN 1 GM in Sodium Chloride 0.9% 100 ML IVPB SCH (18:00)
--- NOTE | 2017-12-08 22:49 | PDOC.PN ---
- Subjective Encounter Start Date: 12/08/17 Encounter Start Time: 10:00 Patient seen and examined for Urinary retention. . No new complaints. No overnight events - Objective Resuscitation Status: Resuscitation Status FULL:Full Resuscitation MAR Reviewed: Yes Vital Signs & Weight: Vital Signs (12 hours) Temp Pulse Resp BP Pulse Ox 12/08/17 19:29 97.8 F 61 24 H 116/57 L 93 L 12/08/17 15:43 97.7 F 53 L 127/63 94 L 12/08/17 11:34 98.3 F 63 20 131/63 92 L Weight Admit Weight 141 lb 6 oz Weight 141 lb 6 oz I&O: 12/07/17 12/08/17 12/09/17 06:59 06:59 06:59 Intake Total 2000 Output Total 825 750 Balance -825 1250 Result Diagrams: 12/08/17 04:30 12/08/17 04:30 Additional Labs: Accuchecks 12/08/17 12/08/17 12/08/17 20:57 15:49 10:44 POC Glucose 196 H 162 H 232 H 12/08/17 06:29 POC Glucose 153 H Phys Exam - Physical Examination Constitutional: NAD Respiratory: no wheezing, no rales, no rhonchi, clear to auscultation bilateral Cardiovascular: RRR, no rub no heaves/pulsations Gastrointestinal: soft, non-tender, no distention, positive bowel sounds Musculoskeletal: no edema Neurological: non-focal, moves all 4 limbs Psychiatric: normal affect, A&O x 3 Dx/Plan - Plan DVT proph w/SCDs IMPRESSION: 1. Urinary retention due to barber malfunction/UTI 2. POLLO on CKD2 3. DM2 4. Hyponatremia/Hyperkalemia 5. Other issues per previous notes PLAN: Cont IVF Cont Ceftriaxone BMP in AM Cont to monitor DC in AM if stable Review of Systems - Review of Systems Respiratory: negative: Cough, Dry, Shortness of Breath, Hemoptysis, SOB with Excertion, Pleuritic Pain, Sputum, Wheezing Cardiovascular: negative: chest pain, palpitations, orthopnea, paroxysmal nocturnal dyspnea, edema, light headedness, other - Medications/Allergies Allergies/Adverse Reactions: Allergies Allergy/AdvReac Type Severity Reaction Status Date / Time No Known Allergies Allergy Verified 12/08/17 04:52 Medications: Current Medications Acetaminophen (Tylenol) 650 mg PO Q4H PRN PRN Reason: Headache/Fever or Pain Dextrose/Water (Dextrose 50%) 25 gm SLOW IVP PRN PRN PRN Reason: Hypoglycemia Enoxaparin Sodium (Lovenox) 30 mg SC 0900 [facility] Last Admin: 12/08/17 08:47 Dose: 30 mg Glucagon (Glucagon) 1 mg IM PRN PRN PRN Reason: Hypoglycemia Glyburide (Micronase) 2.5 mg PO QAM-WM [facility] Ceftriaxone Sodium 1 gm/ (Sodium Chloride) 100 mls @ 200 mls/hr IVPB 1800 [facility] Last Admin: 12/08/17 17:24 Dose: 100 mls Dextrose/Water (D5w) 1,000 mls @ 0 mls/hr IV .Q0M PRN PRN Reason: Hypoglycemia Sodium Chloride (Normal Saline 0.9%) 1,000 mls @ 75 mls/hr IV .[id number] [facility] Last Admin: 12/08/17 20:37 Dose: 1,000 mls Insulin Human Lispro (Humalog) 0 units SC .MILD SLIDING SCALE PRN PRN Reason: Mild Correctional Scale Metoprolol Tartrate (Lopressor) 25 mg PO BID [facility] Last Admin: 12/08/17 20:37 Dose: 25 mg Ondansetron HCl (Zofran) 4 mg IVP Q6H PRN PRN Reason: Nausea/Vomiting Verapamil HCl (Calan Sr) 240 mg PO BID [facility] Last Admin: 12/08/17 20:37 Dose: 240 mg
[2017-12-09] MEDS ORDERED: glyBURIDE 2.5 MG TAB PO SCH (08:00)
[2017-12-09] MEDS: Enoxaparin Sodium 30 MG/0.3 ML SYRINGE SC SCH (09:14)
[2017-12-09] MEDS: Metoprolol Tartrate 25 MG TAB PO SCH (09:14)
[2017-12-09] MEDS ORDERED: Senokot S 8.6-50 MG TAB PO SCH (09:45)
[2017-12-09] MEDS ORDERED: Polyethylene Glycol 3350 17 GM Packet PO SCH (09:45)
[2017-12-09 10:45] LABS: Anion Gap 9 mmol/L (10-20); BUN (Urea Nitrogen) 24 mg/dL (8.4-25.7); Calc. Creatinine Clearance 42 mL/min (70-130); Calcium 8.3 mg/dL (7.8-10.44); Carbon Dioxide 25 mmol/L (23-31); Chloride 101 mmol/L (98-107); Estimated GFR-MDRD 62; Glucose 214 mg/dL (83-110); Potassium 4.3 mmol/L (3.5-5.1); Sodium 131 mmol/L (136-145)
[2017-12-09 12:13] VITALS: BP 130/63; TEMP 97.8
--- NOTE | 2017-12-10 17:37 | DIS ---
DATE OF ADMISSION: 12/07/2017 DATE OF DISCHARGE: 12/09/2017 DISCHARGE DISPOSITION: Home. FOLLOWUP: Follow up with primary care physician, Dr. Rodriguez in one week. ALLERGIES: No known drug allergies. The patient was seen and examined on the day of discharge. Denies any new complaints. No chest pain , shortness of breath, palpitations. DISCHARGE MEDICATIONS: Ciprofloxacin 250 mg twice a day for the next 5 days. All other home medicat ions were left unchanged. BRIEF HOSPITAL COURSE: The patient is an 86-year-old male with chronic indwelling Prado catheter, pr esented to the hospital with nausea as well as abdominal bloating. He was found to have urinary rete ntion due to catheter problem. Prado catheter was changed in the emergency room. The patient had 2. 5 liters urine drained from the bladder after this. He was also found to have urinary tract infectio n. Urine cultures showed E. coli sensitive to ciprofloxacin. He also was found to have acute kidney injury with creatinine 1.67 on admission and 1.12 at discharge. Acute kidney injury was probably se condary to urinary retention. He will benefit from a repeat base met after [address] scan of the a bdomen and pelvis on admission was negative for acute findings except for hiatal hernia and right ing uinal hernia. Plan of care was discussed with the patient. He stated understanding. DISCHARGE DIAGNOSES: 1. Urinary retention due to Prado malfunction, status post replacement of the Prado catheter. 2. Urinary tract infection secondary to Escherichia coli. 3. 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 4. Diabetes mellitus type 2. 5. Hyponatremia. His sodium on admission was 121. At discharge, it was 131. 6. Hyperkalemia, resolved. 7. Metabolic acidosis, resolved. 8. Chronic indwelling Prdao catheter. 9. Hiatal hernia. 10. Gastroesophageal reflux disease. 11. Inguinal hernia as discussed above. 12. Hypertension. Plan of care was discussed with the patient and he stated understanding.
== END 2017-12-09 15:25 | disposition home or self-care (01) ==
LOC: ERS 15:27 → 2SW 20:01
PROVIDERS: ADMIT Internal Medicine; ATTEND Internal Medicine
DX: T83.091A Other mechanical complication of indwelling urethral catheter, initial encounter (principal); R33.9 Retention of urine, unspecified; E11.65 Type 2 diabetes mellitus with hyperglycemia; E87.5 Hyperkalemia; E87.1 Hypo-osmolality and hyponatremia; I12.9 Hypertensive chronic kidney disease with stage 1 through stage 4 chronic kidney disease, or unspecified chronic kidney disease; E11.22 Type 2 diabetes mellitus with diabetic chronic kidney disease; N18.2 Chronic kidney disease, stage 2 (mild); N17.9 Acute kidney failure, unspecified; N39.0 Urinary tract infection, site not specified; B96.20 Unspecified Escherichia coli [E. coli] as the cause of diseases classified elsewhere; E87.2 Acidosis; K21.9 Gastro-esophageal reflux disease without esophagitis; K44.9 Diaphragmatic hernia without obstruction or gangrene; Z79.84 Long term (current) use of oral hypoglycemic drugs; Z79.899 Other long term (current) drug therapy
CPT/HCPCS: 51702; 74177; 80048 ×2; 80053; 82962 ×3; 83690; 85025 ×2; 87086; 87186; 96361 ×3; 96365; 96372 ×2; 96375; 99285; G0378 ×2; 36415; 36416; 81003; 81015; J0696; J1650; J2405; J7050

== ENCOUNTER 2018-04-14 13:33 | Emergency (ER) | payer MEDICARE, BC ==
[2018-04-14 18:09] LABS: Bilirubin Negative (Negative); Blood, Urine Negative (Negative); Glucose, Urine (Dipstick) Negative (Negative); Leukocyte Moderate (Negative); Nitrite Negative (Negative); Protein, Urine (Dipstick) Negative (Neg-Trace); Specific Gravity, Urine 1.015 (1.005-1.030); Urobilinogen 0.2 mg/dL (0.2-1.0); pH, Urine 7.5 (5.0-9.0)
[2018-04-14 18:12] LABS: Clarity CLOUDY (Clear)
[2018-04-14 18:21] LABS: Bacteria/HPF 4+ HPF (None Seen); Hyaline Casts/LPF NONE SEEN LPF (0-3 Hyaline); RBC/HPF None Seen HPF (0-3); Squamous Epithelial 0-3 HPF (0-3); WBC/HPF 21-50 HPF (0-3)
== END 2018-04-14 19:00 | disposition home or self-care (01) ==
LOC: ERS 13:33
DX: T83.091A Other mechanical complication of indwelling urethral catheter, initial encounter (principal); E11.9 Type 2 diabetes mellitus without complications; I10 Essential (primary) hypertension; Z79.84 Long term (current) use of oral hypoglycemic drugs; Z79.899 Other long term (current) drug therapy
CPT/HCPCS: 51702; 81003; 81015; 87077; 87086; 87186

== ENCOUNTER 2018-05-05 10:57 | Emergency (ER) | payer MEDICARE, BC ==
[2018-05-05 13:27] LABS: #Eosinphils 0.1 thou/uL (0.0-0.7); #Lymphocytes 1.3 thou/uL (1.20-3.40); #Monocytes 0.7 thou/uL (0.11-0.59); #Neutrophils 7.4 thou/uL (1.40-6.50); %Basophils 0.3 % (0.0-1.0); %Eosinophils 0.9 % (0.0-10.0); %Lymphocytes 13.2 % (21.0-51.0); %Monocytes 7.7 % (0.0-10.0); %Neutrophils 77.9 % (42.0-75.0); Hemoglobin 12.7 g/dL (14.0-18.0); Mean Corpuscular HGB CONC 32.3 g/dL (32.0-36.0); Mean Corpuscular Hemoglobin 28.5 pg (27.0-31.0); Mean Corpuscular Volume 88.1 fL (78.0-98.0); Mean Platelet Volume 6.3 fL (7.4-10.4); Platelet Count 346 thou/uL (130-400); Red Blood Cell (RBC) Count 4.45 mill/uL (4.70-6.10); White Blood Cell (WBC) Count 9.5 thou/uL (4.8-10.8)
[2018-05-05 13:43] LABS: Bilirubin Negative (Negative); Blood, Urine Large (Negative); Clarity TURBID (Clear); Glucose, Urine (Dipstick) Negative (Negative); Leukocyte Large (Negative); Nitrite Positive (Negative); Protein, Urine (Dipstick) 100 mg/dL (Neg-Trace); Specific Gravity, Urine 1.013 (1.002-1.036); Urobilinogen 0.2 mg/dL (0.2-1.0)
[2018-05-05 13:51] LABS: Squamous Epithelial 0-3 HPF (0-3)
[2018-05-05 13:56] LABS: ALT (SGPT) 8 U/L (8-55); AST (SGOT) 11 U/L (5-34); Alkaline Phosphatase 95 U/L (40-150); Anion Gap 16 mmol/L (10-20); BUN (Urea Nitrogen) 26 mg/dL (8.4-25.7); Bilirubin, Total 0.3 mg/dL (0.2-1.2); Calc. Creatinine Clearance 0 mL/min (70-130); Calcium 9.1 mg/dL (7.8-10.44); Carbon Dioxide 22 mmol/L (23-31); Chloride 95 mmol/L (98-107); Estimated GFR-MDRD 45; Globulin 4.2 g/dL (2.4-3.5); Glucose 288 mg/dL (83-110); Potassium 4.4 mmol/L (3.5-5.1); Protein, Total 8.2 g/dL (5.8-8.1); Sodium 129 mmol/L (136-145)
[2018-05-05 13:57] LABS: Yeast-AUWi Flag 429.2 (0-25.0)
[2018-05-05 14:06] LABS: Bacteria/HPF 4+ HPF (None Seen); Hyaline Casts/LPF NONE SEEN LPF (0-3 Hyaline); Other Casts/LPF None Seen LPF (0-3 Hyaline); Yeast-All Forms None Seen HPF (None Seen)
== END 2018-05-05 16:38 | disposition home or self-care (01) ==
LOC: ERS 10:57
DX: T83.091A Other mechanical complication of indwelling urethral catheter, initial encounter (principal); I10 Essential (primary) hypertension; Z79.899 Other long term (current) drug therapy
CPT/HCPCS: 36415; 80053; 81003; 81015; 83605; 85025; 87040; 87077; 87086; 87186; 93005